=== PATIENT | female | born 1970 ===

== ENCOUNTER 2018-08-11 19:05 | Observation (INO) | payer BC, OTHER ==
[2018-08-11 19:05] VITALS: BMI 32.9
--- NOTE | 2018-08-11 19:15 | ED PDOC ---
Arrival/HPI - General Historian: Patient - History of Present Illness Narrative History of Present Illness (Text): 08/11/18 19:50 47F pmhx of DM2 presents to ED s/p syncope at a store this evening. Pt recalls standing at register then waking up on the floor. Bystanders reported to her that her knees buckled and she lost conscience. Pt reports recently hitting her head hard two days ago accidentally on a change machine when bending down. she reports she "saw stars" and had a severe headache afterwards. ROS: Pos+ headache, dizzy, chronic diplopia, syncope, numbness in feet (chronic, Diabetic Neuropathy) Neg- CP, SOB, FC, NV, weakness, unsteady gait, fatigue, loss of vision, 08/11/18 22:12 Time/Duration: < week Symptom Onset: Sudden Quality: Throbbing Severity Level: Severe Context: Fainted <Jered Mckay - Last Filed: 08/12/18 00:39> <German Galindo - Last Filed: 08/13/18 11:21> - General Chief Complaint: Trauma Time Seen by Provider: 08/11/18 19:14 Past Medical History - Provider Review Nursing Documentation Reviewed: Yes - Tetanus Immunization Tetanus Immunization: Up to Date - Cardiac Hx Hypertension: Yes - Endocrine/Metabolic Hx Hypothyroidism: Yes - Hematological/Oncological Hx Blood Transfusions: No Hx Blood Transfusion Reaction: No - Psychiatric Hx Depression: No Hx Emotional Abuse: No Hx Physical Abuse: No Hx Substance Use: No - Surgical History Hx Cholecystectomy: Yes Hx Orthopedic Surgery: Yes (right foot) - Anesthesia Hx Anesthesia Reactions: No Hx Malignant Hyperthermia: No - Suicidal Assessment Feels Threatened In Home Enviroment: No <Jered Mckay - Last Filed: 08/12/18 00:39> Family/Social History - Physician Review Nursing Documentation Reviewed: Yes Family/Social History: Unknown Family HX Smoking Status: Never Smoked Hx Alcohol Use: No Hx Substance Use: No Hx Substance Use Treatment: No <Jered Mckay - Last Filed: 08/12/18 00:39> Allergies/Home Meds <Jered Mckay - Last Filed: 08/12/18 00:39> <German Galindo - Last Filed: 08/13/18 11:21> Allergies/Adverse Reactions: Allergies oxycodone Allergy (Verified 08/11/18 19:31) URTICARIA Penicillins Allergy (Verified 08/11/18 19:31) URTICARIA Home Medications: Home Meds Medication Instructions Recorded Confirmed Hydrochlorothiazide/Valsarta 1 tab PO DAILY 11/20/12 11/20/12 [Diovan Hct 25 mg-160 mg] Insulin Aspart, Recombinant 10 unit SC BID 11/20/12 11/20/12 [Novolog] Insulin Detemir [Levemir] 100 unit SC 11/20/12 11/20/12 Levothyroxine Sodium 0.075 mg PO DAILY 11/20/12 11/20/12 [Levothyroxine] RX: Omeprazole 40 mg PO DAILY 11/20/12 11/20/12 Review of Systems - Physician Review All systems were reviewed & negative as marked: Yes - Review of Systems Constitutional: absent: Fatigue Eyes: Vision Changes. absent: Photophobia (diplopia) Respiratory: absent: SOB Cardiovascular: Syncope. absent: Chest Pain, Palpitations Gastrointestinal: absent: Nausea, Vomiting Musculoskeletal: absent: Neck Pain Neurological: Headache, Dizziness. absent: Focal Weakness, Gait Changes, Speech Changes, Facial Droop, Disequilibrium <Jered Mckay - Last Filed: 08/12/18 00:39> Physical Exam Temperature: Afebrile Blood Pressure: Hypertensive Pulse: Regular Respiratory Rate: Normal Appearance: Positive for: Non-Toxic, Uncomfortable Pain Distress: Moderate Mental Status: Positive for: Alert and Oriented X 3 - Systems Exam Head: Present: Swelling (m[place]a lateral frontal bone mild 4x4cm swelling, tender to palp) Pupils: Present: PERRL Extroacular Muscles: Present: EOMI Neck: Present: Normal Range of Motion. No: MIDLINE TENDERNESS Respiratory/Chest: Present: Clear to Auscultation. No: Wheezes, Rales Cardiovascular: Present: Regular Rate and Rhythm, Normal S1, S2. No: Murmurs Abdomen: No: Tenderness, Distention Upper Extremity: Present: Normal Inspection, NORMAL PULSES, Capillary Refill < 2s Lower Extremity: Present: Normal Inspection, Tenderness (allodynia with renzo palpation of makeda later aspect of L knee joint line). No: Erythema Neurological: Present: GCS=15, CN II-XII Intact, Speech Normal, Motor Func Grossly Intact, Normal Sensory Function, Normal Cerebellar Funct, Memory Normal, Normal 2Pt Descrimination, Other (neg pronator drift) Psychiatric: Present: Alert, Oriented x 3, Anxious, Other <Jered Mckay - Last Filed: 08/12/18 00:39> Vital Signs Temp Pulse Resp BP Pulse Ox 08/11/18 19:40 98.7 F 85 18 151/82 H 99 - Systems Exam Neck: No: Meningeal Signs Back: Present: Normal Inspection. No: CVA Tenderness, Midline Tenderness Upper Extremity: Present: Neurovascularly Intact. No: Tenderness Lower Extremity: Present: NORMAL PULSES, Normal ROM, Tenderness. No: Edema, CALF TENDERNESS Neurological: Present: Other <German Galindo - Last Filed: 08/13/18 11:21> Medical Decision Making ED Course and Treatment: 08/11/18 21:53 #s/p syncope and head trauma CT head w/o contrast neg prelim read f/u L knee xray EKG NSR f/u urine STAT tylenol - EKG Interpretation Interpreted by ED Physician: Yes (NSR 86bpm) <Jered Mckay - Last Filed: 08/12/18 00:39> ED Course and Treatment: 08/11/18 22:47 CT head unremarkable labs largely unremarkable Pt notes chronic diploplia without glasses, recent head impact 2d prior. no temporal pain. Normal neuro exam on my eval. NEXUS clear- no indication for CT neck appreciate consult w/ Dr. Garcia covering for Dr. Bee: to admit to his service and place consult order for dr. miller. pt in nad, agreeable to plan. - Lab Interpretations Lab Results: 08/11/18 20:25 08/11/18 20:25 Lab Results 08/11/18 20:25: TSH 3rd Generation 1.60 08/11/18 20:25: Sodium 137, Potassium 3.9, Chloride 100, Carbon Dioxide 29, Anion Gap 12, BUN 20, Creatinine 0.6 L, Est GFR ( Amer) > 60, Est GFR (Non-Af Amer) > 60, Random Glucose 308 H*, Calcium 9.3, Phosphorus 3.4, Magnesium 1.9, Total Bilirubin 0.4, AST 29, ALT 51, Alkaline Phosphatase 161 H, Troponin I < 0.01, Total Protein 7.6, Albumin 4.3, Globulin 3.4, Albumin/Globulin Ratio 1.3 08/11/18 20:25: WBC 7.6, RBC 4.72, Hgb 13.5, Hct 40.5, MCV 85.8, MCH 28.6, MCHC 33.3, RDW 12.3, Plt Count 222, MPV 10.3, Gran % 62.0, Lymph % (Auto) 31.3, [place] % (Auto) 5.9, Eos % (Auto) 0.5 L, Baso % (Auto) 0.3, Gran # 4.73, Lymph # (Auto) 2.4, [place] # (Auto) 0.5, Eos # (Auto) 0.0, Baso # (Auto) 0.02 - RAD Interpretation Radiology Orders: 08/11/18 19:49 HEAD W/O CONTRAST [CT] Stat 08/11/18 20:14 CHEST TWO VIEWS (PA/LAT) [RAD] Stat 08/11/18 21:41 KNEE LEFT 2 VIEWS (AP & LAT) [RAD] Stat - Medication Orders Current Medication Orders: Discontinued Medications Acetaminophen (Tylenol 325mg Tab) 650 mg PO STAT STA Stop: 08/11/18 20:02 Last Admin: 08/11/18 20:30 Dose: 650 mg MAR Pain/Vitals Document 08/11/18 20:30 RD (Rec: 08/11/18 20:39 RD [id number]) Pain Reassessment Is This A Pain ReAssessment? No Sleep Is patient sleeping during reassessment? No Presence of Pain Presence of Pain Yes <German Galindo - Last Filed: 08/13/18 11:21> - PA / ELECTRICAL CAD TECHNICIAN / Resident Statement / has examined the patient and agrees with the treatment plan. (47 year well appearing F p/w syncopal episode. No presyncopal symptoms. labs, imaging unremarkable. No signs of lacerations. Normal neuro exam. No dark or bloody stool, normal diet. Labs and imaging unremarakble. Given family hx of arrythmia admitted for syncope w/u. Pt agreeable to plan.) <German Galindo - Last Filed: 08/13/18 11:21> Disposition/Present on Arrival - Present on Arrival Any Indicators Present on Arrival: No History of DVT/PE: No History of Uncontrolled Diabetes: No Urinary Catheter: No History Surgical Site Infection Following: None - Disposition Have Diagnosis and Disposition been Completed?: Yes Disposition Time: 00:39 <Jered Mckay - Last Filed: 08/12/18 00:39> <German Galindo - Last Filed: 08/13/18 11:21> - Disposition Diagnosis: Syncope Disposition: HOSPITALIZED Patient Problems: Current Active Problems Problem Status Onset Syncope Acute Condition: STABLE
[2018-08-11 20:47] LABS: BASO # 0.02 K/mm3 (0.0-2.0); BASO % 0.3 % (0.0-3.0); EOS % 0.5 % (1.5-5.0); GRAN # 4.73 (1.4-6.5); HEMOGLOBIN 13.5 g/dL (12.0-16.0); LYMPH # 2.4 (1.2-3.4); LYMPH % 31.3 % (22.0-35.0); MEAN CELL VOLUME 85.8 fl (80.0-105.0); MEAN CORPUSCULAR HEMOGLOBIN 28.6 pg (25.0-35.0); MEAN CORPUSCULAR HGB CONC 33.3 g/dl (31.0-37.0); MEAN PLATELET VOLUME 10.3 fl (7.0-11.0); MONO # 0.5 (0.1-0.6); MONO % 5.9 % (1.0-6.0); RBC 4.72 10^6/uL (3.5-6.1); RED CELL DISTRIBUTION WIDTH 12.3 % (11.5-14.5); WHITE BLOOD COUNT 7.6 10^3/uL (4.5-11.0)
[2018-08-11 21:09] LABS: TROPONIN I < 0.01 ng/mL
[2018-08-11 21:16] LABS: ALB/GLOB RATIO 1.3 (1.1-1.8); ALBUMIN 4.3 g/dL (3.0-4.8); ALT/SGPT 51 U/L (7-56); AST/SGOT 29 U/L (14-36); BLOOD UREA NITROGEN 20 mg/dL (7-21); CALCIUM 9.3 mg/dL (8.4-10.5); GFR NON-AFRICAN AMERICAN > 60
[2018-08-12] MEDS: Insulin Reg-LOW-Coverage SC SCH ×4 (08:29→22:02)
--- NOTE | 2018-08-12 09:31 | CT ---
Date of service: 08/11/2018 PROCEDURE: CT HEAD WITHOUT CONTRAST. HISTORY: head trauma 2 days ago, syncope today COMPARISON: None available. TECHNIQUE: Axial computed tomography images were obtained through the head/brain without intravenous contrast. Radiation dose: Total exam DLP = 940.19 mGy-cm. This CT exam was performed using one or more of the following dose reduction techniques: Automated exposure control, adjustment of the mA and/or kV according to patient size, and/or use of iterative reconstruction technique. FINDINGS: HEMORRHAGE: No intracranial hemorrhage. BRAIN: No mass effect or edema. No atrophy or chronic microvascular ischemic changes. VENTRICLES: Unremarkable. No hydrocephalus. CALVARIUM: Unremarkable. PARANASAL SINUSES: Unremarkable as visualized. No significant inflammatory changes. MASTOID AIR CELLS: Unremarkable as visualized. No inflammatory changes. OTHER FINDINGS: None. IMPRESSION: No acute intracranial pathology.
--- NOTE | 2018-08-12 09:46 | RAD ---
Date of service: 08/11/2018 HISTORY: syncope COMPARISON: CT chest dated 11/21/2012. TECHNIQUE: Chest PA and lateral FINDINGS: LUNGS: No active pulmonary disease. PLEURA: No significant pleural effusion identified. No pneumothorax apparent. CARDIOVASCULAR: Aortic atherosclerotic calcifications. Cardiomediastinal silhouette within normal limits. OSSEOUS STRUCTURES: No significant abnormalities. VISUALIZED UPPER ABDOMEN: Right upper quadrant surgical clips. OTHER FINDINGS: None. IMPRESSION: No active disease.
--- NOTE | 2018-08-12 09:49 | RAD ---
Date of service: 08/11/2018 PROCEDURE: Left Knee Radiographs. HISTORY: Pain. COMPARISON: None. FINDINGS: BONES: No acute fracture. JOINTS: Unremarkable. JOINT EFFUSION: None. OTHER FINDINGS: None. IMPRESSION: No demonstrated fracture or dislocation.
--- NOTE | 2018-08-12 14:51 | CON ---
DATE: 08/12/2018 REASON FOR CONSULTATION: Syncope, cardiac evaluation. BRIEF CLINICAL HISTORY: This is a 47-year-old female, with past medical history significant for diabetes more than 20 years ago, who had head trauma, hit her head last week while trying to fix up the laundry machine with and hit her head. After that she remained fairly stable, yesterday the patient went to [employer] where she was with her son and suddenly she passed out. Somebody drove to her dad home and brought her to the hospital. The patient denies any chest pain, denies any shortness of breath, denies any palpitation, denies any history of seizure or any incontinence of urine. PAST MEDICAL HISTORY: Significant for diabetes and hypertension. SOCIAL HISTORY: Denies smoking, denies any history of alcohol use. 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 PAST SURGICAL HISTORY: Nothing significant. CURRENT MEDICATIONS: The patient is taking omeprazole 40 mg daily, levothyroxine 0.075 mg daily, 100 mg daily, 150 mg of Diovan and 125 mg of hydrochlorothiazide. ALLERGIES: ALLERGY TO OXYCODONE AND PENICILLIN. REVIEW OF SYSTEMS: As per HPI. PHYSICAL EXAMINATION: Examination as follows; VITAL SIGNS: Height of the patient 5 feet 5 inches, weight of the patient 156 pounds, body mass index 26 kg/m2. Rest of the examination; temperature afebrile, heart rate 84, and blood pressure 134/95. HEENT: PERRLA. Extraocular muscles intact. NECK: Supple. No carotid bruit or thyromegaly. CHEST: Clear to auscultation. HEART: S1 and S2 regular. ABDOMEN: Soft. EXTREMITIES: Clubbing and cyanosis negative. LABORATORY DATA: EKG shows normal sinus, heart rate 86. No acute ST-T changes noted. Rest of the labs; WBC 7.6, hemoglobin 13.5, hematocrit 34.5, and platelet count 222. Chemistry shows sodium 137, potassium 3.9, chloride 100, carbon dioxide 29, anion gap of 12, BUN of 20, and creatinine 0.6. IMPRESSION: A 47-year-old female, with a past medical history of diabetes, hypertension, and hyperlipidemia, who had a history of head trauma a week ago; admitted yesterday after syncopal episode, completely passed out and got a bruise in the chin left side; no recollection. Denies any seizure episode. Initial CAT scan of the head; no acute intracranial pathology is essentially negative. History of diabetes, hypertension, and hyperlipidemia. RECOMMENDATIONS: Rule out orthostatic hypotension. We will do echo stress test tomorrow. Further recommendations after hospital course. We will follow with you. We will get the lipid profile, TSH, and hemoglobin A1c. We will schedule also a stress test in the morning. Further recommendations with the stress test. We will follow with you. We will keep n.p.o. after 12 midnight for a stress test in the morning. Thank you Dr. Stack for providing us the opportunity in taking care of the patient, Sherice Edwards. Carmen Muñiz MD
--- NOTE | 2018-08-12 15:23 | CON ---
DATE: 08/12/2018 NEUROLOGY CONSULTATION CHIEF COMPLAINT: Syncope. HISTORY OF PRESENT ILLNESS: A 47-year-old woman, history of type II diabetes mellitus, history of diabetic peripheral neuropathy, on gabapentin and Lyrica who apparently was out walking up to the floor and all of a sudden bystanders noticed that she started buckling her knees and lost consciousness and hit the back of her head. She accidentally 2 days prior also went down to change her clothes in washroom, head as well until started at time. She has a mild postconcussive headache which has improved currently. No focal weakness on the extremities. She has mild diabetic peripheral neuropathy features on the neuro examination. Otherwise, CAT scan of the head show no intracranial abnormality. No acute distress. ALLERGIES: ALLERGIC TO OXYCODONE AND PENICILLIN. FAMILY HISTORY: Noncontributory. PAST MEDICAL HISTORY: As above. SOCIAL HISTORY: No illicit drug use, smoking or ETOH abuse. PHYSICAL EXAMINATION: VITAL SIGNS: Temperature 98.1, pulse rate 84, blood pressure 134/95, respiratory rate 20 and oxygen saturation 95% on room air. NEUROLOGIC: The patient is alert and oriented to person and place. Speech is fluent without errors. Cranial nerves II through XII are intact. Motor exam; moves all extremities. Toes are downgoing bilaterally. Sensory exam; decreased light touch, pinprick up to the calves bilaterally, decreased vibration of the toes. DTRs are 2+throughout and 1 in both knees and ankles. Coordination; [id number] intact. No dysmetria noted. HEART: S1 and S2. Normal rate and rhythm. No murmurs, rubs, or gallops. ABDOMEN: Soft, nontender, nondistended. Bowel sounds are present. LUNGS: Clear to auscultation. No adventitious sounds. HEENT: Atraumatic and normocephalic. PERRLA. Extraocular muscles are intact. LABORATORY DATA: Sodium is 137, potassium 3.9, chloride 100, carbon dioxide 29, BUN of 20, creatinine 0.6, glucose 208, 262. ASSESSMENT: Syncope, seems most likely vasovagal rather than seizure. She had a mild postconcussive headache which has improved. She is on Lyrica 50 mg p.o. 3 times daily and gabapentin 100 mg p.o. twice daily for diabetic peripheral neuropathy. RECOMMENDATIONS: At this time recommend, 1. Keep her blood sugars between 140 and 180 since her blood sugars are elevated. 2. Carotid Doppler. 3. Labs and vital signs and echocardiogram Followup with Cardiology. She is clinically stable from neuro standpoint. Ted Rodriguez MD
--- NOTE | 2018-08-12 19:58 | CARD ---
APPROVED REPORT Date of service: 08/11/2018 EKG Measurement Heart [id number] OR 150P-2 [id number] <Conclusion> Normal sinus rhythm Normal ECG
--- NOTE | 2018-08-12 22:33 | HP ---
DATE OF EXAM: 08/12/2018 HISTORY OF PRESENT ILLNESS: This is a 47-year-old female who is coming into the hospital after she had a fall. She states that she was in a store and register and fell back. She says she had hit the side of her head. She has bruising in the chin on left side of her face area with swelling around her eyes. The patient says that they are bystanders who were present and who noticed that she had lost consciousness. She does not remember how long she lost consciousness. She did hit her head 2 days ago when she was bending over. She was complaining of headaches. She says that she does not have any pain. No dizziness. No nausea or vomiting. No abdominal pain. No back pain. No dysuria, frequency, nocturia. No weakness in the arms or legs. She does have a history of neuropathy in the feet. She does have diplopia that is present in the past is chronic. ALLERGIES TO OXYCODONE, PENICILLIN. HOME MEDICATIONS. Diovan/valsartan, NovoLog, Levemir, levothyroxine and omeprazole. PAST MEDICAL HISTORY: Hypertension, diabetes type 2, hypothyroidism. FAMILY HISTORY: She has a father that has an irregular heartbeat. She had a mother that also has an irregular heart beat and has a defibrillator. SOCIAL HISTORY: She does not smoke, drink or use drugs. REVIEW OF SYSTEMS: All other review of symptoms are within normal limits except as mentioned. PHYSICAL EXAMINATION VITAL SIGNS: Temperature is 98.1, pulse of 84, blood pressure 134/95, respirations 20, O2 saturation 97%. Height is 5 feet 5 inches, weight is 156 pounds, BMI is 26. GENERAL: The patient lying in bed, uncomfortable, and in no acute distress. HEENT: Atraumatic and normocephalic. Anicteric sclerae. Moist mucosa. [place] conjunctivae. No oral lesions. NECK: No JVD, anterior and posterior adenopathy, thyromegaly, or bruits. CARDIOVASCULAR: S1 and S2 regular. No murmur, rubs, or gallop. LUNGS: Clear to auscultation bilaterally. No wheezes, rales, or rhonchi. ABDOMEN: Bowel sounds are positive. Soft, nontender and nondistended. No hepatosplenomegaly. No rebound and no guarding EXTREMITIES: No cyanosis, clubbing, or edema. NEUROLOGIC: No facial asymmetry. Tongue is midline. No vulva deviation. Power is 5/5 upper extremity and lower extremity. Sensation intact in upper extremity and lower extremity. PSYCHIATRIC: She is awake, alert and oriented x3. No anxiety or depression. She has normal affect. GENITOURINARY: No CVA tenderness. VASCULAR: 2+ pulses in the carotid pulses and pedal pulses. SKIN: No erythema or nodules SPINE: Shows normal curvature. LABORATORY DATA: White count of 7.6, hemoglobin 13.5, platelet count is 222. Chemistry shows a sodium of 137, potassium 3.9, creatinine 0.6, AST and ALT is 29 and 51. Troponin 0.01. His head CT shows no acute intracranial findings. Chest x-ray done shows no acute disease. Left knee x-ray shows no fractures or dislocation. ASSESSMENT: 1. Syncope. 2. Diabetes type 2. 3. Hypertension. 4. Chronic diplopia. 5. Peripheral neuropathy secondary to diabetes. PLAN: The patient is currently admitted to the hospital. She had a syncopal episode. I am not sure about her cause of this syncopal episode. She says she had a stress test done about [address] Muñiz. I have asked for consultation again. The patient is on Neurontin for neuropathy. She is going to continue her Lyrica for her neuropathy. I will place her on insulin sliding scale with coverage. She is going to be on Tylenol as needed. The patient has an echo that has been ordered by Dr. Muñiz as well as stress test. She is going to be on heart-healthy diet. I will also get Dr. Rodriguez to evaluate from Neurology. We will have blood work done tomorrow. Nitish You MD
[2018-08-13] MEDS ORDERED: Pantoprazole 40 mg EC Tab PO SCH (06:00)
[2018-08-13 07:05] LABS: BASO # 0.02 K/mm3 (0.0-2.0); BASO % 0.3 % (0.0-3.0); EOS # 0.1 (0.0-0.7); GRAN # 3.99 (1.4-6.5); GRAN % 55.5 % (50.0-68.0); HEMOGLOBIN 13.1 g/dL (12.0-16.0); LYMPH # 2.6 (1.2-3.4); LYMPH % 36.4 % (22.0-35.0); MEAN CELL VOLUME 86.3 fl (80.0-105.0); MEAN CORPUSCULAR HEMOGLOBIN 28.5 pg (25.0-35.0); MEAN PLATELET VOLUME 10.4 fl (7.0-11.0); MONO # 0.5 (0.1-0.6); MONO % 6.8 % (1.0-6.0); RBC 4.6 10^6/uL (3.5-6.1); RED CELL DISTRIBUTION WIDTH 12.6 % (11.5-14.5); WHITE BLOOD COUNT 7.2 10^3/uL (4.5-11.0)
[2018-08-13 07:22] LABS: LDL CHOLESTEROL 88 mg/dL (0-129)
[2018-08-13 07:35] LABS: ALB/GLOB RATIO 1.1 (1.1-1.8); ALBUMIN 3.8 g/dL (3.0-4.8); ALT/SGPT 49 U/L (7-56); AST/SGOT 30 U/L (14-36); BLOOD UREA NITROGEN 18 mg/dL (7-21); CALCIUM 9.2 mg/dL (8.4-10.5); GFR NON-AFRICAN AMERICAN > 60; HDL CHOLESTEROL 51 mg/dL (29-60)
--- NOTE | 2018-08-13 07:42 | CP.PCM.PN ---
Subjective - Date & Time of Evaluation Date of Evaluation: 08/13/18 Time of Evaluation: 06:30 - Subjective Subjective: Awake, alert, no distress Reason for consultation and follow up: Cardiac evaluation of of syncope. History of diabetes mellitus,hypertension,hypothyroidism Seen and examined by me and Dr. Muñiz Objective - Vital Signs/Intake and Output Vital Signs (last 24 hours): Temp Pulse Resp BP Pulse Ox 98.5 F 73 18 138/94 H 98 08/12/18 16:49 08/13/18 06:00 08/12/18 16:49 08/12/18 16:49 08/12/18 16:49 Intake and Output: 08/13/18 08/13/18 06:59 18:59 Intake Total 480 Balance 480 - Medications Medications: Current Medications Acetaminophen (Tylenol 325mg Tab) 650 mg PO Q8H PRN PRN Reason: Fever >100.4 F Last Admin: 08/12/18 22:14 Dose: 650 mg Gabapentin (Neurontin) 100 mg PO BID [facility]; Protocol Last Admin: 08/12/18 17:17 Dose: 100 mg Gabapentin (Neurontin) 100 mg PO ONCE ONE; Protocol Stop: 08/13/18 23:03 Last Admin: 08/12/18 23:30 Dose: 100 mg Insulin Human Regular (Humulin R Low) 0 units SC ACHS [facility]; Protocol Last Admin: 08/12/18 22:02 Dose: Not Given Pantoprazole Sodium (Protonix Ec Tab) 40 mg PO 0600 [facility] Last Admin: 08/13/18 05:06 Dose: 40 mg Pregabalin (Lyrica) 50 mg PO TID [facility] Last Admin: 08/12/18 17:17 Dose: 50 mg - Labs Labs: 08/13/18 06:00 - Constitutional Appears: Non-toxic, No Acute Distress - Head Exam Head Exam: NORMAL INSPECTION, NORMOCEPHALIC - Eye Exam Eye Exam: Normal appearance Pupil Exam: NORMAL ACCOMODATION - ENT Exam ENT Exam: Mucous Membranes Moist, Normal Exam - Respiratory Exam Respiratory Exam: Clear to Ausculation Bilateral, NORMAL BREATHING PATTERN - Cardiovascular Exam Cardiovascular Exam: REGULAR RHYTHM, +S1, +S2 - GI/Abdominal Exam GI & Abdominal Exam: Soft, Normal Bowel Sounds - Extremities Exam Extremities Exam: Full ROM, Normal Capillary Refill - Neurological Exam Neurological Exam: Alert, Awake, Oriented x3 - Psychiatric Exam Psychiatric exam: Normal Affect, Normal Mood - Skin Skin Exam: Dry, Normal Color, Warm Assessment and Plan - Assessment and Plan (Free Text) Assessment: A 47 year old female who came in to the ER due to syncopal episode. She hit her head last week while trying to fix the laundry machine. She was okay then. Prior to admission, while she was in a [employer], she suddenly passed out and does not remember what happen. History of diabetes for more than 20 years , hypertension,hypothyroidism, cholecystectomy, right foot surgery, and diabetic neuropathy on Gabapentin and Lyrica. CT of head negative for bleeding. Rule out hypoglycemia. Troponin normal. Rule out orthostatic hypotension. For Stress test today. Plan: No distress, feels okay For stress test today Blood pressure stable/controlled Control glucose Heart rate stable Continue current medications Continue current treatment Further recommendations after Stress test Will follow up Plan and treatment discussed with Dr. Muñiz
[2018-08-13] MEDS: Insulin Reg-LOW-Coverage SC SCH (08:20)
[2018-08-13 08:26] VITALS: RESP 20
[2018-08-13] MEDS ORDERED: Aminophylline 25 mg/ml Inj ONE (10:58)
[2018-08-13] MEDS: Insulin Lispro (humaLOG) LOW Coverage SC SCH ×2 (13:18→16:45)
[2018-08-13] MEDS: Insulin Lispro 1 UNITS/0.01 ML SC SCH ×2 (13:24→16:21)
--- NOTE | 2018-08-13 15:50 | CARD ---
APPROVED REPORT Date of service: 08/13/2018 EXAM: Two-dimensional and M-mode echocardiogram with Doppler and color Doppler. INDICATION Syncope 2D DIMENSIONS Left Atrium (2D)3.4 (1.6-4.0cm)IVSd1.1 (0.7-1.1cm) LVDd4.5 (3.9-5.9cm)PWd1.0 (0.7-1.1cm) LVDs3.0 (2.5-4.0cm)FS (%) 33.0 % LVEF (%)61.6 (>50%) M-Mode DIMENSIONS Aortic Root3.10 (2.2-3.7cm)Aortic Cusp Exc.1.70 (1.5-2.0cm) Aortic Valve AoV Peak Jazuvymu46.3cm/Nette Peak GR.3mmHg Mitral Valve MV E Jftanrow68.3cm/sMV A Kokygesi57.4cm/sE/A ratio0.8 TDI E/Lateral E'0.0E/Medial E'0.0 Tricuspid Valve TR Peak [id number]/sRAP [id number] Peak Gr.3mmHg [id number] LEFT VENTRICLE The left ventricle is normal size. There is normal left ventricular wall thickness. The left ventricular function is normal. EF-60-65% There is normal LV segmental wall motion. Transmitral Doppler flow pattern is Grade III-reversible restrictive diastolic dysfunction. No left ventricle thrombus noted on this study. There is no ventricular septal defect visualized. There is no left ventricular aneurysm. There is no mass noted in the left ventricle. RIGHT VENTRICLE The right ventricle is normal size. There is normal right ventricular wall thickness. The right ventricular systolic function is normal. ATRIA The left atrium size is normal. The right atrium size is normal. The interatrial septum is intact with no evidence for an atrial septal defect. AORTIC VALVE The aortic valve is thickened but opens well. No aortic regurgitation is present. There is no aortic valvular stenosis. There is no aortic valvular vegetation. MITRAL VALVE The mitral valve is thickened but opens well. Mitral annular calcification is mild. Mitral regurgitation is trace. There is no mitral valve stenosis. There is no evidence of mitral valve prolapse. TRICUSPID VALVE The tricuspid valve leaflets are thickened , but open well. There is trace tricuspid regurgitation.RVSP-19 mmof hg. There is no tricuspid valve stenosis. There is no tricuspid valve prolapse or vegetation. PULMONIC VALVE The pulmonary valve is normal in structure. There is no pulmonic valvular regurgitation. There is no pulmonic valvular stenosis. GREAT VESSELS The aortic root is normal in size. The ascending aorta is normal in size. The pulmonary artery is normal. The IVC is normal in size and collapses >50% with inspiration. PERICARDIAL EFFUSION There is no pleural effusion. There is no pericardial effusion. <Conclusion> Normal chamber Size. Ef-60-65%. Trace MR/TR RVSP_19 mmof Hg. No thrombus or vegetation noted.
--- NOTE | 2018-08-13 16:12 | CARD ---
APPROVED REPORT Date of service: 08/13/2018 Protocol: LEXISCAN Test Type: Lexiscan Sestamibi Stress Test Attending Physician: Dr. Carmen Muñiz Referring Physician: Dr. Brittany Bee Test Indications: Chest Pain Height:5 ft 5 in Weight:156lbs Medications: tylenol, neurontin, humulin R protonix, lyrica Medical History: 47 year old female with h/o htn, diabetes, hypothyroid and migraines Target HR: 171 bpm Resting ECG: non-specific st-t changes Resting Heart Rate: 75 bpm Resting Blood Pressure: 132/86mmHg Submaximum (85%): 145 bpm PROCEDURE Pharmacologic stress testing was performed using 0.4mg per 5ml of regadenoson given intravenously over 7-10 seconds. Reversal agent aminophyline 100 mg, given intravenously for Headache. POST EXERCISE Reason for Termination: Protocol completed Target HR: No Max HR: 75 bpm 66% of Maximum Predicted HR: 171 bpm Exercise duration: 00:22 min:sec, 0 Stage Exercise capacity: 1.0METs Max Blood Pressure: 132/86mmHg Blood Pressure response to exercise: normal resting BP - appropriate response Heart Rate response to exercise: appropriate Chest Pain: No, none Angina index: 0 Arrhythmia: No, none ST Change: No, none Deviation: 0 mm INTERPRETATION Stress EKG Conclusion: Negative IV Lexiscan for ischemia and for chest pain, [facility] Signed by Carmen Muñiz Electronically Approved: 08/13/2018 12:04:35 EXAM: Myocardial Perfusion REST/STRESS Stress Test Type: Pharmacologic Imaging Protocol The imaging protocol used to acquire images was Rest Tc-99m/stress Tc-99m 1 day Rest Spect myocardial perfusion imaging was performed in supine position 40 minutes following the injection of 10.5 mCi of Tc-99 Myoview. At peak stress, the patient was injected intravenously with 30.4mCi of Tc-99 tetrofosmin after an infusion time of minutes and seconds. Gated Stress Spect was performed 60 minutes after intravenous Tc-99 Myoview injection. The images were gated to evaluate regional wall motion and calculate ventricular ejection fraction.Images were reconstructed using backfilter projection method in short horizontal and verticle long axis. Spect slices were generated. LV Perfusion The quality of the study is good. The left ventricle is normal in size. The right ventricle is unremarkable. The lung uptake is normal. The distribution of tracer reveals mildly and diffusely decreased perfusion involving anterior wall on the stress study. The remainder of the LV myocardium is unremarkable. The rest myocardial perfusion study shows no significant change. Wall Motion Wall motion study shows good contractility of the left ventricle. LVEF = 72%. Conclusion 1. Essentially normal SPECT myocardial perfusion study. 2. Fixed, anterior defect is most likely due to breast attenuation. 3. Normal gated wall motion of the left ventricle.
[2018-08-13 16:34] VITALS: BP 140/96; PULSE 94; TEMP 98.1; O2SAT 98
[2018-08-13] MEDS ORDERED: Influenza Vaccine 60 mcg/0.5 mL SYR (4YR UP) IM ONE (17:12)
--- NOTE | 2018-08-13 19:37 | PN ---
DATE: 08/13/2018 REASON FOR CONSULTATION: Cardiac evaluation, syncope, diabetes, hypertension and hypothyroidism. The patient denies any chest pain, shortness of breath or any palpitation. This note is an addition to the note dictated by nurse practitioner, Yanni Sivla. Telemetry shows normal sinus. Noninvasive workup, echo and stress test scheduled today. The patient came in with near-syncope and blood sugar was 289. So far, no evidence of arrhythmia noted. Further recommendation will depend upon hospital course. We will follow with you. Triglyceride 224, cholesterol 168, LDL 88, HDL 51. TSH 1.60 yesterday. Hemoglobin A1c pending came just down to 13.1, very poorly controlled diabetes. Most likely, her symptoms happened secondary to severe hyperglycemia. We will follow with you. Thank you, Dr. Stack, for providing us the opportunity in taking care of the patient, Sherice Edwards. Carmen Muñiz MD
--- NOTE | 2018-08-13 19:47 | CON ---
DATE: 08/13/2018 ENDOCRINOLOGY CONSULT ROOM: 366. HISTORY OF PRESENT ILLNESS: This is a 47-year-old female with known history of type 2 insulin-requiring diabetes, presenting here with recurrent syncopal episodes and head injury and is now being referred for diabetic evaluation because of persistent hyperglycemic accelerations as noted thereof. PAST MEDICAL HISTORY: History of type 2 insulin-requiring diabetes on a combination of NovoLog given as 10 units b.i.d. with meals and Levemir given as 100 units at bedtime p.r.n. History of hypertension and dyslipidemia, history of hypothyroidism, on levothyroxine taken as 75 mcg daily, history of diabetic polyneuropathy with lower extremity paresthesias. FAMILY HISTORY: Positive for hypertension and diabetes. SOCIAL HISTORY: The patient has a supportive family. No known substance use. REVIEW OF SYSTEMS: As mentioned above. Admits to generalized body weakness with episodic bouts of dizziness and lightheadedness and frequent syncopal and near syncopal episodes as noted. No chest pains or palpitations. Her oral intake has been variable with nausea, dyspepsia, and vague upper abdominal pains. Also admits to recent polyuria and nocturia. PHYSICAL EXAMINATION: GENERAL: This is an average built female, in no apparent distress. VITAL SIGNS: Blood pressure of 140/80, pulse of 100 beats per minute regular, temperature 98, respirations 20, height is 5 feet 5 inches, weight is 156 pounds. HEENT: Head, normocephalic. Eyes, anicteric with pink conjunctivae. Fundoscopy not possible at this time. Ears, nose and throat, otherwise normal. NECK: Supple. Thyroid gland is normal size. No carotid bruits or any cervical adenopathy. CARDIOPULMONARY: Some adynamic precordium. S1, S2 are rapid and regular. LUNGS: Clear to auscultation. ABDOMEN: Flat, soft with positive bowel sounds. EXTREMITIES: No peripheral edema. Pulses are +2 bilaterally. LABORATORY DATA: Her chemistry showed a BUN of 18, sodium 135, potassium 4.2, chloride 101, CO2 of 27, glucose 310, and creatinine 0.5. Her glucose levels have ranged from 261-289 mg/dL. ASSESSMENT: This is a 47-year-old female with uncontrolled and decompensated type 2 insulin-requiring diabetes with extremes of glycemic fluctuations and a suboptimal metabolic control, presenting here with recurrent syncopal episodes and currently undergoing neurological workup at this time. PLAN OF MANAGEMENT: We will initiate a more physiologic basal and bolus insulin drug combination to optimize metabolic control. We will start her with Humalog given as 8 units t.i.d. before meals to start at lunchtime today as ordered. We will also modify the coverage scale to a very low-dose algorithm using Humalog insulin to obviate hypoglycemia and detailed orders have been given. We will also add basal insulin with Levemir given as 24 units subcu at bedtime daily to start tonight. We will titrate incrementally as indicated to optimize metabolic control. We will also obtain thyroid function studies and titrate her dose regimen for the levothyroxine accordingly. We will follow this. Kira Oconnor MD
[2018-08-13] MEDS ORDERED: Insulin Detemir 100 units/ml Vial (Levemir) SC SCH (22:00)
--- NOTE | 2018-08-13 23:27 | DS ---
HISTORY OF PRESENT ILLNESS: The patient is 47-year-old. While shopping, she passed out and she was brought to emergency room. The patient is very noncompliant for her diabetes medication. She usually does not like to take pills. She was prescribed insulin as outpatient, but she does not like to inject herself. She takes her sugar medication occasionally. Lately, she has been suffering from severe neuropathy, for that she is under the care of Dr. Orozco. The patient was admitted for further workup after she had syncope attack. PHYSICAL EXAMINATION: GENERAL: She is awake, alert, oriented, communicative. VITAL SIGNS: She is afebrile, pulse 80, respirations 20, and blood pressure 130/91. LUNGS: Bilateral fair airflow. No rhonchi or crackle. HEART: S1 and S2 audible. ABDOMEN: Soft, nontender. No rebound. No guarding. NEUROLOGICAL: The patient is awake, alert, oriented, communicative. LABORATORY EXAM: WBC 7.2, hemoglobin 13, hematocrit 39.7, platelet 210. Chemistry: Sodium 135, potassium 4.2, chloride 101, CO2 of 27, BUN 18, creatinine 0.5, blood sugar 263. Echocardiogram is pending. X-ray of the knee . EKG is normal sinus rhythm. No ST wave changes noted. PLAN: The patient is getting stress test currently. We will monitor her blood sugar. We will discuss with other consultants and by the end of the day, the patient will be discharged today. We will follow her as outpatient. Brittany Bee MD
--- NOTE | 2018-08-14 15:02 | US ---
PROCEDURE: Bilateral carotid artery duplex ultrasound HISTORY: carotid stenosis PHYSICIAN(S): Kel May MD. TECHNIQUE: Duplex sonography and color-flow Doppler were used to evaluate the carotid bifurcations and limited segments of the vertebral arteries bilaterally. FINDINGS: There is diffuse mild smooth hypoechoic plaque noted at the carotid bifurcations bilaterally. The peak systolic velocity in the proximal right internal carotid artery is 47 cm/sec. This corresponds to a 20 to 39% proximal right ICA stenosis. Normal systolic velocities are noted in the proximal right external carotid artery. There is antegrade flow in the right vertebral artery. The peak systolic velocity in the proximal left internal carotid artery is 35 cm/sec. This corresponds to a 20 to 39% proximal left ICA stenosis. Normal systolic velocities are noted in the proximal left external carotid artery. There is antegrade flow in the left vertebral artery. IMPRESSION: 1. Bilateral 20-39% proximal ICA stenoses. 2. Antegrade flow in both vertebral arteries.
== END 2018-08-13 18:20 | disposition home or self-care (01) ==
LOC: ED 19:05 → ERH 22:45 → 3RNO 23:59
PROVIDERS: ADMIT Internal Medicine; ATTEND Internal Medicine
DX: R55 Syncope and collapse (principal); E11.65 Type 2 diabetes mellitus with hyperglycemia; E11.42 Type 2 diabetes mellitus with diabetic polyneuropathy; I10 Essential (primary) hypertension; E03.9 Hypothyroidism, unspecified; H53.2 Diplopia; E78.5 Hyperlipidemia, unspecified; R51 Headache; F07.81 Postconcussional syndrome; S00.83XA Contusion of other part of head, initial encounter; W19.XXXA Unspecified fall, initial encounter; Y92.512 Supermarket, store or market as the place of occurrence of the external cause; Z88.0 Allergy status to penicillin; Z79.4 Long term (current) use of insulin; Z91.14 Patient's other noncompliance with medication regimen; Z23 Encounter for immunization
CPT/HCPCS: 36415; 70450; 71046; 73560; 78452; 80053; 80061; 82948; 83036; 83735; 84100; 84443; 84484; 85025; 90674; 93005; 93017; 93306; 93880; 99285; A9502; G0008; G0378

== ENCOUNTER 2018-08-15 17:44 | Outpatient (CLI) | payer BC | END 2018-08-15 17:45 | disposition home or self-care (01) | LOC: RAD 17:44 ==